=== PATIENT | male | born 1955 | race Caucasian/White ===

== ENCOUNTER → 2023-11-05 10:58 | Outpatient (REF) | payer MEDICARE, OTHER, SELFPAY ==
[2023-11-05 12:16] LABS: % Basophils 0.4 % (0-2); % Eosinophils 0.5 % (0-6); % Immature Granulocytes 0.4 % (0-0.5); % Lymphocytes 38.2 % (20.5-51.1); % Monocytes 8.5 % (1.7-9.3); Absolute Lymphocytes 3.1 10^3/uL (1.2-3.4); Absolute Monocytes 0.7 10^3/uL (0.1-0.6); Absolute Neutrophils 4.2 10^3/uL (1.4-6.5); Hematocrit 46.2 % (39.0-52.0); Hemoglobin 15.6 g/dL (13.0-18.0); Mean Corp Hgb Conc. 33.8 g/dL (33.0-37.0); Mean Corpuscular Volume 88.8 fL (80.0-94.0); Mean Platelet Volume 10.6 fL (7.4-10.4); Nucleated Red Blood Cells % 0 % (-); Platelet Count 167 10^3/uL (130-400); Red Cell Dist. Width 13.4 % (11.5-14.5)
[2023-11-05 12:47] LABS: Glycohemoglobin (HgbA1c) 5.8 % (4.0-5.6)
[2023-11-05 13:00] LABS: ALT (SGPT) 41 U/L (0-50); AST (SGOT) 37 U/L (17-59); Albumin 4.8 g/dl (3.5-5.0); Alkaline Phosphatase 99 U/L (38-126); Blood Urea Nitrogen 16 mg/dl (9-20); Calcium 9.9 mg/dl (8.4-10.2); Carbon Dioxide 24 mmol/L (22-30); Chloride 102 mmol/L (98-107); Glucose 109 mg/dl (70-99); HDL Cholesterol 84 mg/dl; LDL Cholesterol, Calculated 70 mg/dl; Potassium 4.4 mmol/L (3.5-5.1); Sodium 134 mmol/L (135-145); Total Cholesterol 177 mg/dl (50-199); Total Protein 7.4 g/dl (6.3-8.2); Triglyceride 117 mg/dl (10-149); Very Low Density Lipoprotein 23 mg/dl (0-30); eGFR > 60.00
== END ==
LOC: REG 10:58
PROVIDERS: ATTENDING PHYSICIAN Physician Assistant; REFERRING PHYSICIAN Urology
DX: E78.2 Mixed hyperlipidemia (principal); G47.34 Idiopathic sleep related nonobstructive alveolar hypoventilation; I10 Essential (primary) hypertension; R73.9 Hyperglycemia, unspecified; E78.00 Pure hypercholesterolemia, unspecified; D72.829 Elevated white blood cell count, unspecified; N20.0 Calculus of kidney
CPT/HCPCS: 36415; 74018; 80053; 80061; 83036; 85025

== ENCOUNTER → 2024-02-07 12:15 | Outpatient (REF) | payer MEDICARE, OTHER, SELFPAY | LOC: RAD 12:15 | PROVIDERS: ATTENDING PHYSICIAN Nurse Practitioner Family | DX: E78.00 Pure hypercholesterolemia, unspecified (principal) | CPT/HCPCS: 75571 ==

== ENCOUNTER → 2024-04-01 12:38 | Outpatient (REF) | payer MEDICARE, OTHER, SELFPAY | LOC: RCS 12:38 | PROVIDERS: ATTENDING PHYSICIAN Internal Medicine Cardiovascular Disease; FAMILY PHYSICIAN Nurse Practitioner Family | DX: I25.10 Atherosclerotic heart disease of native coronary artery without angina pectoris (principal) | CPT/HCPCS: 93306 ==

== ENCOUNTER → 2024-04-09 09:40 | Outpatient (REF) | payer MEDICARE, OTHER, SELFPAY | LOC: RCS 09:40 | PROVIDERS: ATTENDING PHYSICIAN Internal Medicine Cardiovascular Disease; FAMILY PHYSICIAN Physician Assistant | DX: I25.10 Atherosclerotic heart disease of native coronary artery without angina pectoris (principal); R07.89 Other chest pain | CPT/HCPCS: 93017; 93350; Q9957 ==

== ENCOUNTER → 2024-05-22 10:24 | Outpatient (REF) | payer MEDICARE, OTHER, SELFPAY ==
[2024-05-22 11:48] LABS: ALT (SGPT) 49 U/L (0-50); AST (SGOT) 37 U/L (17-59); Albumin 4.6 g/dl (3.5-5.0); Alkaline Phosphatase 102 U/L (38-126); Blood Urea Nitrogen 21 mg/dl (9-20); Calcium 9.8 mg/dl (8.4-10.2); Carbon Dioxide 28 mmol/L (22-30); Chloride 100 mmol/L (98-107); Glucose 107 mg/dl (70-99); HDL Cholesterol 81 mg/dl; LDL Cholesterol, Calculated 76 mg/dl; Potassium 4.6 mmol/L (3.5-5.1); Sodium 140 mmol/L (135-145); Total Bilirubin 0.9 mg/dl (0.2-1.3); Total Cholesterol 176 mg/dl (50-199); Total Protein 7.1 g/dl (6.3-8.2); Triglyceride 98 mg/dl (10-149); Very Low Density Lipoprotein 19 mg/dl (0-30); eGFR > 60.00
== END ==
LOC: REG 10:24
PROVIDERS: ATTENDING PHYSICIAN Internal Medicine Cardiovascular Disease; FAMILY PHYSICIAN Family Medicine
DX: E78.5 Hyperlipidemia, unspecified (principal)
CPT/HCPCS: 36415; 80053; 80061

== ENCOUNTER → 2024-11-05 10:01 | Outpatient (REF) | payer MEDICARE, OTHER, SELFPAY ==
[2024-11-05 11:07] LABS: ALT (SGPT) 43 U/L (0-50); AST (SGOT) 30 U/L (17-59); Albumin 4.6 g/dl (3.5-5.0); Alkaline Phosphatase 97 U/L (38-126); Blood Urea Nitrogen 22 mg/dl (9-20); Calcium 9.6 mg/dl (8.4-10.2); Carbon Dioxide 25 mmol/L (22-30); Chloride 104 mmol/L (98-107); Glucose 115 mg/dl (70-99); HDL Cholesterol 70 mg/dl; LDL Cholesterol, Calculated 60 mg/dl; Potassium 4.7 mmol/L (3.5-5.1); Sodium 139 mmol/L (135-145); Total Cholesterol 149 mg/dl (50-199); Total Protein 6.9 g/dl (6.3-8.2); Triglyceride 98 mg/dl (10-149); Very Low Density Lipoprotein 19 mg/dl (0-30); eGFR > 60.00
== END ==
LOC: REG 10:01
PROVIDERS: ATTENDING PHYSICIAN Student in an Organized Health Care Education/Training Program; FAMILY PHYSICIAN Family Medicine
DX: E78.5 Hyperlipidemia, unspecified (principal); I25.10 Atherosclerotic heart disease of native coronary artery without angina pectoris
CPT/HCPCS: 36415; 80053; 80061

== ENCOUNTER → 2024-12-29 10:59 | Outpatient (REF) | payer MEDICARE, OTHER, SELFPAY | LOC: RAD 10:59 | PROVIDERS: ATTENDING PHYSICIAN Nurse Practitioner Family | DX: M54.50 Low back pain, unspecified (principal); M25.551 Pain in right hip | CPT/HCPCS: 72110; 73502 ==